=== PATIENT | female | born 2000 | race Two or more races ===

== ENCOUNTER 2019-11-10 11:52 | Emergency (ER) | payer MEDICAID, OTHER ==
[~2019-11-10] VITALS: Ht 167.6 cm; Wt 129.3 kg
[2019-11-10 12:01] VITALS: BP 100/60
--- NOTE | 2019-11-10 12:14 | NUR ---
PT CAME TO THE ED FOR COUGH W/ CONGESTION, FEVER, +NVD, BODY ACHES X 5 DAYS. PT AAO4, BREATHING EVEN AND UNLABORED ON RA W/ NAD NOTED. PT CHANGED INTO GOWN, CONNECTED TO THE MONITOR AND POX.
[2019-11-10] MEDS ORDERED: IBUPROFEN 400 MG TABLET ONE (12:27)
[2019-11-10] MEDS ORDERED: ONDANSETRON 4 MG TAB.RAPDIS ONE (12:28)
[2019-11-10] MEDS ORDERED: ONDANSETRON 4 MG TAB.RAPDIS SL ONE (12:30)
[2019-11-10] MEDS ORDERED: IBUPROFEN 400 MG TABLET PO ONE (12:30)
--- NOTE | 2019-11-10 12:57 | NUR ---
Patient discharged to home in stable condition. Written and verbal after care instructions given. Patient verbalizes understanding of instruction.
== END 2019-11-10 12:57 | disposition home or self-care (01) ==
LOC: ER 11:57
DX: J11.1 Influenza due to unidentified influenza virus with other respiratory manifestations (principal); F32.9 Major depressive disorder, single episode, unspecified; Z90.89 Acquired absence of other organs
CPT/HCPCS: 99283; Q0162

== ENCOUNTER 2019-11-15 17:00 | Inpatient (IN) | payer OTHER ==
[~2019-11-15] VITALS: Ht 167.6 cm; Wt 128.8 kg
--- NOTE | 2019-11-15 20:00 | NUR ---
BIBSELF C/O BILATERAL LOWER EXT SWELLING X1 DAY. DENIES RECENT TRAUMA. DENIES SOB, CP. PT AAOX4. RESPIRATIONS EVEN AND UNLABORED. NO ACUTE DISTRESS NOTED AT THIS TIME. WILL CONTINUE TO MONITOR
[2019-11-15 20:21] LABS: BASOPHILS % (AUTO) 0.5 % (0.0-2.0); EOSINOPHILS % (AUTO) 3.2 % (0.0-6.0); HEMATOCRIT 35 % (33-45); HEMOGLOBIN 11.4 g/dL (11.5-14.8); LYMPHOCYTES # (AUTO) 2.9 /CMM (0.8-4.8); LYMPHOCYTES % (AUTO) 37.8 % (20.0-44.0); MEAN CORPUSCULAR HGB CONC 33 g/dl (31.0-36.0); MEAN CORPUSCULAR VOLUME 88 fL (82-100); MONOCYTES # (AUTO) 0.8 /CMM (0.1-1.30); MONOCYTES % (AUTO) 10.3 % (2.0-12.0); NEUTROPHILS # (AUTO) 3.6 /CMM (1.8-8.9); NEUTROPHILS % (AUTO) 48.2 % (43.0-81.0); PLATELET COUNT (AUTO) 282 /CMM (150-450); RED BLOOD CELL COUNT(AUTO) 4.01 MIL/uL (4.0-5.2); WHITE BLOOD COUNT (AUTO) 7.6 K/uL (4.3-11.0)
[2019-11-15 20:30] LABS: CALCIUM, SERUM 8.4 mg/dL (8.5-10.1); CREATININE 0.7 mg/dL (0.6-1.3); POTASSIUM 4.5 mmol/L (3.5-5.1)
[2019-11-15 20:43] LABS: ALBUMIN 2.8 g/dL (3.4-5.0); BILIRUBIN,DIRECT 0.1 mg/dL (0.0-0.2); BILIRUBIN,TOTAL 0.5 mg/dL (0.2-1.0); TOTAL PROTEIN, SERUM 6.2 g/dL (6.4-8.2)
[2019-11-15] MEDS ORDERED: FUROSEMIDE 40 MG/4 ML VIAL IV ONE (23:00)
--- NOTE | 2019-11-15 23:01 | NUR ---
BED ASSIGNMENT 107
[2019-11-15] MEDS ORDERED: FUROSEMIDE 40 MG/4 ML VIAL ONE (23:12)
[2019-11-15] MEDS ORDERED: ACETAMINOPHEN 325 MG TABLET PO PRN (23:30)
[2019-11-15] MEDS ORDERED: ONDANSETRON HCL/PF 4 MG/2 ML VIAL IVP PRN (23:30)
[2019-11-15] MEDS ORDERED: HYDROCODONE/APAP 5/325MG 1 EACH TABLET PO PRN (23:30)
--- NOTE | 2019-11-15 23:50 | NUR ---
REPORT GIVEN TO JEFF HEART FOR PEGGY
[2019-11-16] VITALS: BP 129/81
--- NOTE | 2019-11-16 | NUR ---
RECEIVED PATIENT VIA WC FROM ED IN STABLE CONDITION. DR. WALDEN AT BEDSIDE. PATIENT AWAKE, A/OX4, AND ABLE TO VERBALIZE NEEDS. AMBULATORY WITH STRONG STEADY GAIT. PERIPHERAL LINE INTACT AND PATENT. NO C/O PAIN OR DISCOMFORT. NOTED WITH +1 BLE AND FEET PITTING EDEMA. SKIN INTACT. VITALS WNL. ENCOURAGED USE OF CALL LIGHT FOR ASSISTANCE AND VERBALIZED/DEMONSTRATED GOOD UNDERSTANDING. BED IN LOW LOCK SETTING. ROOM FREE OF CLUTTER AND BELONGINGS KEPT NEAR BEDSIDE. WILL CONTINUE TO MONITOR
[2019-11-16 06:00] VITALS: BP 116/71
[2019-11-16 06:05] VITALS: BP 129/81
[2019-11-16 06:07] VITALS: BP 116/71
--- NOTE | 2019-11-16 06:26 | NUR ---
TRANSFER PROFESSOR NOTES PATIENT ASLEEP IN BED WITH NO DISTRESS NOTED. CALL LIGHT WITHIN REACH. PERIPHERAL LINE INTACT AND PATENT. VITALS WNL. BED IN LOW LOCK SETTING. ROOM FREE OF CLUTTER AND BELONGINGS KEPT NEAR BEDSIDE. WILL ENDORSE TO ONCOMING SHIFT.
[2019-11-16 06:55] LABS: BASOPHILS % (AUTO) 0.3 % (0.0-2.0); EOSINOPHILS % (AUTO) 4.5 % (0.0-6.0); HEMATOCRIT 35 % (33-45); HEMOGLOBIN 11.6 g/dL (11.5-14.8); LYMPHOCYTES % (AUTO) 35.6 % (20.0-44.0); MEAN CORPUSCULAR HGB CONC 33 g/dl (31.0-36.0); MEAN CORPUSCULAR VOLUME 87 fL (82-100); MONOCYTES # (AUTO) 0.9 /CMM (0.1-1.30); MONOCYTES % (AUTO) 10.6 % (2.0-12.0); NEUTROPHILS # (AUTO) 4.2 /CMM (1.8-8.9); PLATELET COUNT (AUTO) 310 /CMM (150-450); RED BLOOD CELL COUNT(AUTO) 4.04 MIL/uL (4.0-5.2); WHITE BLOOD COUNT (AUTO) 8.5 K/uL (4.3-11.0)
--- NOTE | 2019-11-16 07:13 | NUR ---
MEMORY CARE PROGRAM DIRECTOR OPENING NOTES RECEIVED PATIENT ASLEEP IN BED. AROUSABLE TO VERBAL AND TACTILE STIMULI. NO S/S OF RESPIRATORY DISTRESS. HOB ELEVATED. DENIES ANY C/O PAIN NOR DISCOMFORT AT THIS TIME. RAC # 18 SL INTACT AND PATENT. BED IN LOWEST POSITION, LOCKED. BED ALARM ON. CALL LIGHT WITHIN REACH.
--- NOTE | 2019-11-16 07:14 | NUR ---
LUMBER PILER OPERATOR NOTES ON TELE MONITORING SR: 90
[2019-11-16] MEDS ORDERED: PANTOPRAZOLE 40 MG TABLET.DR PO SCH (07:30)
[2019-11-16 07:34] LABS: ALBUMIN 2.7 g/dL (3.4-5.0); BILIRUBIN,TOTAL 0.5 mg/dL (0.2-1.0); CALCIUM, SERUM 8.4 mg/dL (8.5-10.1); CREATININE 0.7 mg/dL (0.6-1.3); PHOSPHORUS 4.5 mg/dL (2.5-4.9); POTASSIUM 4.1 mmol/L (3.5-5.1)
[2019-11-16 08:00] VITALS: BP 121/60
[2019-11-16] MEDS ORDERED: ENOXAPARIN SODIUM 40 MG/0.4 ML DISP.SYRIN SQ SCH (09:00)
[2019-11-16] MEDS ORDERED: FUROSEMIDE 20 MG/2 ML VIAL IV SCH (09:00)
[2019-11-16 11:19] VITALS: BP 121/60
--- NOTE | 2019-11-16 13:20 | NUR ---
MS RN NOTES ALERT AND AWAKE ORIENTED X4. NO SOB. DENIES ANY C/O PAIN NOR DISCOMFORT AT THIS TIME. DISCHARGE INSTRUCTIONS AND PACKET GIVEN TO PATIENT. ALL BELONGINGS ACCOUNTED FOR. IV ACCESS REMOVED WITH CATHETER TIP INTACT. AMBULATORY WITH STEADY GAIT. PATIENT PICKED UP BY GRANDFATHER AND LEFT VIA PRIVATE CAR IN STABLE CONDITION.
[2019-11-16 13:56] LABS: APPEARANCE,URINE CLEAR (CLEAR); BILIRUBIN,URINE SMALL (NEGATIVE); BLOOD, URINE TRACE-INTA Ery/uL (NEGATIVE); COLOR,URINE DARK YELLO (YELLOW); KETONES,URINE NEGATIVE (NEGATIVE); LEUKOCYTE ESTERASE ,URINE NEGATIVE (NEGATIVE); NITRITE, URINE NEGATIVE (NEGATIVE); PH,URINE 7.5 (5.0-8.0); PROTEIN,URINE NEGATIVE (NEGATIVE); UGLUCOSE NEGATIVE (NEGATIVE); UROBILINOGEN,URINE 0.2 EU/dL (0.2)
[2019-11-16 14:50] LABS: BACTERIA,URINE 2+ /HPF (None Seen)
[2019-11-16 14:51] LABS: MUCUS,URINE Few /LPF (None Seen); SQUAMOUS EPITHELIAL CELL,UR 0-2 /HPF (None Seen)
== END 2019-11-16 13:15 | disposition home or self-care (01) | DRG 723 ==
LOC: ER 17:00 → TELE1 23:35 → MEDSG1 11-16 00:13 → TELE1 11-16 01:22
PROVIDERS: ADMIT Internal Medicine; ATTEND Nurse Practitioner Acute Care
DX: B34.9 Viral infection, unspecified (principal); E44.0 Moderate protein-calorie malnutrition; E66.01 Morbid (severe) obesity due to excess calories; E88.09 Other disorders of plasma-protein metabolism, not elsewhere classified; F32.9 Major depressive disorder, single episode, unspecified; G47.33 Obstructive sleep apnea (adult) (pediatric); Z68.42 Body mass index [BMI] 45.0-49.9, adult; R78.89 Finding of other specified substances, not normally found in blood; R60.9 Edema, unspecified
CPT/HCPCS: 36415; 71045-TC; 80048-TC; 80053-TC; 80076-TC; 81000-TC; 83735-TC; 83880; 84100-TC; 84484-TC; 85025-TC; 87081-TC; 87086-TC; 93307-TC; G0378; J1650; J1940; J3490

== ENCOUNTER 2023-08-13 05:45 | Emergency (ER) | payer OTHER ==
[~2023-08-13] VITALS: Ht 165.1 cm; Wt 103.9 kg
[2023-08-13 06:23] VITALS: BP 124/73; TEMP 99.6; O2SAT 100
== END 2023-08-13 06:23 | disposition home or self-care (01) ==
LOC: ER 05:47
DX: F19.10 Other psychoactive substance abuse, uncomplicated (principal); Z98.890 Other specified postprocedural states; R06.02 Shortness of breath; Z60.2 Problems related to living alone